=== PATIENT | female | born 1955 | race Caucasian/White ===

== ENCOUNTER → 2020-11-09 | Outpatient (CLI) | payer OTHER ==
[~2020-11-09] MED LIST: K-DUR TAB 10 M10 MEQ PO
== END ==
LOC: KOH-I 13:52
DX: F17.210 Nicotine dependence, cigarettes, uncomplicated (principal)
CPT/HCPCS: 71271

== ENCOUNTER → 2021-02-04 | Outpatient (CLI) | payer MEDICARE, OTHER | LOC: MAMO 09:00 | DX: Z12.31 Encounter for screening mammogram for malignant neoplasm of breast (principal) | CPT/HCPCS: 77063; 77067 ==

== ENCOUNTER → 2021-07-12 | Outpatient (CLI) | payer MEDICARE, OTHER | LOC: EXRD 13:51 | DX: Z78.0 Asymptomatic menopausal state (principal) | CPT/HCPCS: 77080 ==